=== PATIENT | female | born 1935 | race Caucasian/White ===

== ENCOUNTER → 2020-05-21 | Outpatient (CLI) | payer MEDICARE, OTHER ==
[~2020-05-21] MED LIST: NORMAL SALINE IV ONE; SINCALIDE IV ONE
--- NOTE | 2020-05-21 12:11 | RAD ---
HEPATOBILIARY SCAN WITH EJECTION FRACTION History: Reason: RUQ PAIN / Spl. Instructions: / History: Procedure: Serial static images are obtained of the liver and biliary system in the frontal projection following IV administration of 5.5 mCi of Technetium 99m Choletec. After filling of the gallbladder, 1.6 mcg of sincalide were infused over 30 minutes and dynamic imaging continued over this period. The gallbladder ejection fraction was calculated. Findings: There is prompt hepatic clearance of tracer from the blood pool. There is homogeneous distribution throughout the liver. There is normal filling of the gallbladder and normal emptying into the biliary system and small bowel. The gallbladder ejection fraction measures 95% (normal gallbladder EF is 35% or greater). IMPRESSION: 1. The cystic duct and common bile duct are patent. Negative for acute cholecystitis. 2. The gallbladder ejection fraction is normal. Electronically signed by: Tyson Zapata MD (05/21/2020 12:08 PM) [id number]
== END | disposition home or self-care (01) ==
LOC: NM 08:46
PROVIDERS: ATTEND Family Medicine
DX: R10.11 Right upper quadrant pain (principal)
CPT/HCPCS: 78227; A9537; J2805

== ENCOUNTER → 2020-10-28 | Outpatient (CLI) | payer MEDICARE, OTHER ==
--- NOTE | 2020-10-28 10:47 | RAD ---
EXAM: Lumbar spine, 5 views. HISTORY: Pain. COMPARISON: None. FINDINGS: 5 views of the lumbar spine are obtained. There is minimal lumbar dextrocurvature. There is grade 1 anterolisthesis of L3 on L4, measuring 2 mm. There is grade one anterolisthesis of L4 on L5, measuring 4 mm. There is grade 1 anterolisthesis of L5 on S1, measuring 4 mm. There is facet arthrop athy at the lower lumbar levels. IMPRESSION: 1. Mild grade 1 anterolisthesis and facet arthropathy at the mid and lower lumbar levels. 2. No acute osseous finding. Electronically signed by: Nu Wasserman MD (10/28/2020 10:44 AM) [id number]
== END ==
LOC: DXRAD 09:56
PROVIDERS: ATTEND Family Medicine
DX: M47.816 Spondylosis without myelopathy or radiculopathy, lumbar region (principal)
CPT/HCPCS: 72110

== ENCOUNTER 2021-01-31 15:13 | Emergency (ER) | payer MEDICARE, OTHER ==
[~2021-01-31] VITALS: Ht 154.9 cm; Wt 80.7 kg
--- NOTE | 2021-01-31 15:20 | PHYS DOC ---
Past History Past Medical History: Diabetes, Hypertension Adult General HPI HPI Patient is a 85-year-old female who presents via POV for "slurred speech". Last known well was 0030 hours today, 13 hours prior to arrival. Patient lives at home with son whom is primary brass chaser. Son apparently reported that patient had been having slurred speech and difficulty forming words and at times expressing herself with words. Patient's daughter was finally notified of this this afternoon and after hearing about these findings, brought patient in for evaluation. On arrival, patient denies any slurred speech but does admit difficulty at times forming words and expressing herself with words, such as falls which is new. Nothing known makes better or worse. She denies being in any pain, no fever or recent illness, no trauma, no medication changes, chest pain, shortness of breath, vision changes, syncope or lightheadedness, abdominal pain, UTI-like symptoms, lower extremity swelling, motor or sensory function or recent changes or obvious neurologic deficits. She has history of hypertension and diabetes, takes a baby aspirin and high intensity statin daily, no prior history of cardiovascular disease or CVA. Daughter who is at bedside with patient does admit she has had prior hospitalizations for hypertensive urgency /emergency in the past, none of which have been in the past 6 months Review of Systems Review of Systems Fourteen body systems of review of systems have been reviewed. See HPI for pertinent positives and negative responses, other ashley all other systems are negative, non-pertinent or non-contributory Allergies Allergies Allergies Coded Allergies Type Severity Reaction Last Updated Verified No Known Drug Allergies 05/21/20 No Physical Exam Physical Exam General: Appears well, non toxic, and comfortable Skin: Warm, dry. Normal for ethnicity. HEENT: Atraumatic. PERRLA. Moist mucous membranes. Neck: Trachea midline. Normal ROM. Respiratory: Normal WOB. CTAB w/o w/r/r. No tachypnea. Cardiovascular: Regular rate and rhythm. Normal peripheral perfusion. No edema. Abdomen: Soft. Non tender. No distension. Back: Normal ROM. Musculoskeletal: No swelling or deformity. Neuro: Alert and oriented x 4. MAEE. GCS 15. Normal FNF. Negative pronator drift. Normal heel to logan. Normal Monico. CN II-XII intact. Normal sensation. 4/5 right lower extremity muscle strength otherwise motor function intact. Normal speech. Psych: Normal affect and mood. Current Patient Data Vital Signs Vital Signs Date Time Temp Pulse Resp B/P (MAP) Pulse Ox O2 Delivery O2 Flow Rate FiO2 01/31/21 15:20 99.0 78 20 150/108 (122) 96 Room Air Vital Signs Date Time Temp Pulse Resp B/P (MAP) Pulse Ox O2 Delivery O2 Flow Rate FiO2 01/31/21 15:20 99.0 78 20 150/108 (122) 96 Room Air Lab Results Laboratory Tests Test 01/31/21 15:25 01/31/21 15:58 White Blood Count 6.6 x10^3/uL Red Blood Count 4.62 x10^6/uL Hemoglobin 13.8 g/dL Hematocrit 42.2 % Mean Corpuscular Volume 91 fL Mean Corpuscular Hemoglobin 30 pg Mean Corpuscular Hemoglobin Concent 33 g/dL Red Cell Distribution Width 13.5 % Platelet Count 228 x10^3/uL Neutrophils (%) (Auto) 52 % Lymphocytes (%) (Auto) 38 % Monocytes (%) (Auto) 7 % Eosinophils (%) (Auto) 2 % Basophils (%) (Auto) 1 % Neutrophils # (Auto) 3.4 x10^3uL Lymphocytes # (Auto) 2.5 x10^3/uL Monocytes # (Auto) 0.5 x10^3/uL Eosinophils # (Auto) 0.1 x10^3/uL Basophils # (Auto) 0.0 x10^3/uL Prothrombin Time 10.4 SEC Prothromb Time International Ratio 1.0 Activated Partial Thromboplast Time 30 SEC Sodium Level 141 mmol/L Potassium Level 3.9 mmol/L Chloride Level 105 mmol/L Carbon Dioxide Level 29 mmol/L Anion Gap 7 Blood Urea Nitrogen 20 mg/dL Creatinine 1.1 mg/dL Estimated GFR (Cockcroft-Gault) 47.2 BUN/Creatinine Ratio 18 Glucose Level 115 mg/dL Calcium Level 10.0 mg/dL Total Bilirubin 0.5 mg/dL Aspartate Amino Transf (AST/SGOT) 21 U/L Alanine Aminotransferase (ALT/SGPT) 40 U/L Alkaline Phosphatase 50 U/L Troponin I Quantitative < 0.017 ng/mL Total Protein 7.8 g/dL Albumin 3.9 g/dL Albumin/Globulin Ratio 1.0 Urine Collection Type Unknown Urine Color Yellow Urine Clarity Clear Urine pH 6.5 Urine Specific [place] 1.020 Urine Protein Neg Urine Glucose (UA) Neg mg/dL Urine Ketones (Stick) Neg mg/dL Urine Blood Neg Urine Nitrite Neg Urine Bilirubin Neg Urine Urobilinogen Dipstick 1.0 mg/dL Urine Leukocyte Esterase Trace Urine RBC Rare /HPF Urine WBC 1-4 /HPF Urine Squamous Epithelial Cells Many /LPF Urine Bacteria 0 /HPF EKG EKG EKG ordered and interpreted by myself 1521 hrs. by myself as sinus rhythm at 77 bpm, unremarkable intervals, no axis deviation, no acute ischemic findings, no STEMI Radiology/Procedures Radiology/Procedures CT STROKE HEAD W/O History: Reason: slurred speech, dysarthria / Spl. Instructions: / History: Comparison: February 18, 2016 Technique: Noncontrast CT imaging was performed of the head. Exposure: One or more of the following individualized dose reduction techniques were utilized for this examination: 1. Automated exposure control 2. Adjustment of the mA and/or kV according to patient size 3. Use of iterative reconstruction technique. Findings: Acute left thalamic hemorrhage measures 1.3 x 0.9 cm. Mild adjacent mass effect. No hydrocephalus. Mild brain parenchymal volume loss. Mild foci of decreased attenuation within the hemispheric white matter, most often due to chronic microvascular ischemia. Imaged orbits are unremarkable. Imaged paranasal sinuses and mastoid air cells are clear. No acute calvarial fracture. Impression: 1. Acute left thalamic hemorrhage. FOR INTERNAL CODING PURPOSES Critical result: Findings discussed with Dr. Nieves at 01/31/2021 3:45 PM. RESULT CODE: (C) Electronically signed by: Deonte Hines DO (01/31/2021 3:51 PM) [id number] DICTATED AND SIGNED BY: DEONTE HINES DO DATE: 01/31/21 1543 CC: SADIA REESE MD; INA NIEVES DO ~MTH0 0 Heart Score C/O Chest Pain: No HEART Score for Chest Pain: HEART Score for Chest Pain Response (Comments) Value History Slighlty/Non-Suspicious 0 ECG Normal 0 Age > 65 2 Risk Factors >3 Risk Factors or Hx CAD 2 Troponin < Normal Limit 0 Total 4 Risk Factors: Risk Factors: DM, Current or recent (<one month) smoker, HTN, HLP, family history of CAD, obesity. Risk Scores: Risk Factors: DM, Current or recent (<one month) smoker, HTN, HLP, family history of CAD, obesity. Course & Med Decision Making Course & Med Decision Making Hemodynamically stable. HPI concerning for strokelike symptoms, physical exam grossly unremarkable with NIH stroke scale of 1 and apparent apraxia Code stroke called, patient had NIH stroke scale performed while in route to CT head. Blood was drawn. [id number] glucose and EKG were unremarkable CT head findings concerning for hemorrhagic stroke in left thalamus, there is no obvious midline shift or other concerning findings. Nonetheless, given findings, neurosurgery service at [facility] was contacted and case discussed. They agreed for need of transfer and hospital admission. No emergent/urgent indication for surgical intervention but there is indication for admission for continued supportive care, blood pressure monitoring, neuro evaluation etc. I contacted hospitalist at [facility] and they were amenable for transfer and admission under their care. I updated patient and daughter on proposed plan of care that included hospital transfer, they were amenable to plan of care as stated. CODE STATUS discussion occurred with the daughter and patient, patient is full CODE STATUS at this time. All questions and concerns addressed prior to ER transport to [facility] Critical Care Time This patient required critical care. Due to the fact that the patient required a significant amount of one on one physician - patient contact time, ordering and review of studies, arranging urgent treatment with development of a management plan, evaluation of patients response to treatment with frequent reassessments, and discussions with other providers this patient required 45 minutes of critical care time. Critical care time was indicated due to the inherent instability and/or potential for instability in this patient. The critical care time that is allocated to this patient is above and beyond any time spent on any other billable procedures performed on this patient. Dragon Disclaimer Dragon Disclaimer This electronic medical record was generated, in whole or in part, using a voice recognition dictation system. 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
--- NOTE | 2021-01-31 15:29 | EKG ---
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
--- NOTE | 2021-01-31 15:53 | RAD ---
CT STROKE HEAD W/O History: Reason: slurred speech, dysarthria / Spl. Instructions: / History: Comparison: February 18, 2016 Technique: Noncontrast CT imaging was performed of the head. Exposure: One or more of the following individualized dose reduction techniques were utilized for thi s examination: 1. Automated exposure control 2. Adjustment of the mA and/or kV according to patient size 3. Use of iterative reconstruction technique. Findings: Acute left thalamic hemorrhage measures 1.3 x 0.9 cm. Mild adjacent mass effect. No hydrocephalus. Mild brain parenchymal volume loss. Mild foci of decreased attenuation within the h emispheric white matter, most often due to chronic microvascular ischemia. Imaged orbits are unremarkable. Imaged paranasal sinuses and mastoid air cells are clear. No acute ca lvarial fracture. Impression: 1. Acute left thalamic hemorrhage. FOR INTERNAL CODING PURPOSES Critical result: Findings discussed with Dr. Meyer at 01/31/2021 3:45 PM. RESULT CODE: (C) Electronically signed by: Deonte Hines DO (01/31/2021 3:51 PM) [id number]
[2021-01-31 15:54] LABS: BASO % 1 % (0-3); EOS # 0.1 x10^3/uL (0.0-0.7); EOS % 2 % (0-3); HEMATOCRIT 42.2 % (36.0-47.0); HEMOGLOBIN 13.8 g/dL (12.0-15.5); LYMPH # 2.5 x10^3/uL (1.0-4.8); LYMPH % 38 % (24-48); MEAN CORPUSCULAR HEMOGLOBIN 30 pg (25-35); MEAN CORPUSCULAR HGB CONC 33 g/dL (31-37); MEAN CORPUSCULAR VOLUME 91 fL (79-100); MONO # 0.5 x10^3/uL (0.0-1.1); MONO % 7 % (0-9); NEUT # 3.4 x10^3uL (1.8-7.7); NEUT % 52 % (31-73); PLATELET COUNT 228 x10^3/uL (140-400); RED BLOOD COUNT 4.62 x10^6/uL (3.50-5.40); RED CELL DISTRIBUTION WIDTH 13.5 % (11.5-14.5); WHITE BLOOD COUNT 6.6 x10^3/uL (4.0-11.0)
[2021-01-31 16:15] LABS: CREATININE 1.1 mg/dL (0.6-1.0); GFR 47.2; POTASSIUM 3.9 mmol/L (3.5-5.1)
[2021-01-31 16:23] LABS: ALBUMIN 3.9 g/dL (3.4-5.0); TOTAL BILIRUBIN 0.5 mg/dL (0.2-1.0); TOTAL PROTEIN 7.8 g/dL (6.4-8.2)
[2021-01-31 16:57] LABS: BACTERIA,URINE 0 /HPF (0-FEW); BILIRUBIN,URINE NEG (NEG); CLARITY,URINE CLEAR; COLOR,URINE YELLOW; GLUCOSE,URINE NEG (NEG); NITRITE,URINE NEG (NEG); RBC,URINE RARE /HPF (0-2); SQUAMOUS EPITHELIAL CELL,UR MANY /LPF
[2021-01-31 17:03] VITALS: BP 142/77
== END 2021-01-31 17:30 | disposition short-term general hospital (02) ==
LOC: ER 15:13
DX: I62.9 Nontraumatic intracranial hemorrhage, unspecified (principal); R48.2 Apraxia; I10 Essential (primary) hypertension; I63.9 Cerebral infarction, unspecified; E11.9 Type 2 diabetes mellitus without complications
CPT/HCPCS: 36415; 70450; 80053; 81001; 84484; 85025; 85610; 85730; 93005; 99285-25; 99291-25

== ENCOUNTER → 2021-02-14 | Outpatient (CLI) | payer MEDICARE, OTHER ==
[2021-01-31 17:03] VITALS: BP 142/77
--- NOTE | 2021-02-14 11:17 | RAD ---
EXAM: Head CT without contrast. HISTORY: Thalamic hemorrhage follow-up. TECHNIQUE: Computed tomographic images of the head were obtained without contrast. *One or more of the following individualized dose reduction techniques were utilized for this examina tion: 1. Automated exposure control. 2. Adjustment of the mA and/or kV according to patient size. 3. Use of iterative reconstruction technique. COMPARISON: 01/31/2021. FINDINGS: There has been interval decrease in the size and attenuation attenuation of a recently demo nstrated acute hemorrhage left thalamic and parenchymal hemorrhage. There is minimal residual hyperde nsity in this location and slight surrounding edema. No new hemorrhage is seen. There is no mass effe ct or midline shift. There is no hydrocephalus. There is decreased attenuation within the cerebral wh ite matter, likely due to chronic small vessel disease. There is age-appropriate cerebral volume loss . There is evidence of lens surgery. The paranasal sinuses mastoid air cells are clear. There is no c alvarial lesion. IMPRESSION: 1. Decrease in the size and attenuation of a previously demonstrates left thalamic hematoma and surro unding edema. 2. Bilateral cerebral white matter changes, likely due to chronic small vessel disease. Electronically signed by: Nu Wasserman MD (02/14/2021 11:15 AM) [id number]
== END ==
LOC: CT 10:10
PROVIDERS: ATTEND Neurological Surgery
DX: I61.0 Nontraumatic intracerebral hemorrhage in hemisphere, subcortical (principal)
CPT/HCPCS: 70450

== ENCOUNTER → 2021-02-28 | Outpatient (CLI) | payer MEDICARE, OTHER ==
[2021-01-31 17:03] VITALS: BP 142/77
--- NOTE | 2021-02-28 12:30 | RAD ---
INDICATION: Reason: follow up bleed / Spl. Instructions: / History: . COMPARISON: February 14, 2021 TECHNIQUE: Axial CT images obtained through the head. One or more of the following individualized dose reduction techniques were utilized for this examinat ion: 1. Automated exposure control; 2. Adjustment of the mA and/or kV according to patient size; 3 . Use of iterative reconstruction technique. FINDINGS: Punctate focus of high density in the left thalamus measuring up to 4 mm which could be from the kayleigh ent's previously identified hemorrhage which is similar to most recent prior. There is some surroundi ng low density which could be from a small amount of associated edema. No new region of hemorrhage. No hydrocephalus. Multifocal regions of low density within the white matter. Calcific atherosclerosis. IMPRESSION: * Similar appearance compared to prior with a small focus of high density in the left thalamus from the patient's previously identified hemorrhage with small amount of surrounding edema again seen. No new hemorrhage Electronically signed by: Octavio De Santiago MD (02/28/2021 12:27 PM) [id number]
== END ==
LOC: CT 11:29
PROVIDERS: ATTEND Neurological Surgery
DX: I61.9 Nontraumatic intracerebral hemorrhage, unspecified (principal)
CPT/HCPCS: 70450

== ENCOUNTER → 2021-06-14 | Outpatient (CLI) | payer MEDICARE, OTHER ==
--- NOTE | 2021-06-14 12:46 | RAD ---
EXAM: DUAL ENERGY X-RAY ABSORPTIOMETRY (DEXA). HISTORY: Postmenopausal screening. FINDINGS: The lowest measured T-score is -1.6 in the lumbar spine, based on a bone mineral density of 0.987 g/cm^2. Refer to the worksheets for full detail. No comparison examinations are available. IMPRESSION: 1. Low bone mass. Bone mineral density yields a T-score between -1.0 and -2.5. Fracture risk is incre ased. 2. FRAX report: Not calculated. METHODOLOGY: Dual energy x-ray absorptiometry was performed to measure bone mineral density. The foll owing analysis is based on the 2019 Official Positions of the International Society for Clinical Dens itometry: Measurements of the hips and the average of L1-L4 are preferred. When the spine and/or hip cannot be feasibly measured or interpreted, or in the setting of hyperparathyroidism, distal radial bone minera l density may be measured. The lumbar spine T-score is based on the average bone mineral density of L1-L4. In the setting of art ifact or anatomic abnormality, some lumbar levels may be excluded, and the remaining levels used for calculation. A single lumbar level is not used for diagnosis, and if only a single level is available for assessment, another anatomic site will be used to assign a diagnosis. The hip T-score is based on the bone mineral density measurement of the femoral neck or total proxima l femur of either side, whichever is lowest. Bilateral mean values are not used for diagnosis. The forearm T-score is derived from 33% of the distal radius of the nondominant forearm. Electronically signed by: Nu Wasserman MD (06/14/2021 12:44 PM) [id number]
== END ==
LOC: DXRAD 11:06
PROVIDERS: ATTEND Family Medicine
DX: M85.89 Other specified disorders of bone density and structure, multiple sites (principal)
CPT/HCPCS: 77080

== ENCOUNTER 2021-06-27 10:39 | Emergency (ER) | payer MEDICARE, OTHER ==
[~2021-06-27] VITALS: Ht 154.9 cm; Wt 78.0 kg
--- NOTE | 2021-06-27 11:03 | EKG ---
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
[2021-06-27 11:07] LABS: BASO % 1 % (0-3); EOS # 0.1 x10^3/uL (0.0-0.7); EOS % 2 % (0-3); HEMATOCRIT 40.8 % (36.0-47.0); HEMOGLOBIN 13.5 g/dL (12.0-15.5); LYMPH # 2.1 x10^3/uL (1.0-4.8); LYMPH % 39 % (24-48); MEAN CORPUSCULAR HEMOGLOBIN 30 pg (25-35); MEAN CORPUSCULAR HGB CONC 33 g/dL (31-37); MEAN CORPUSCULAR VOLUME 91 fL (79-100); MONO # 0.4 x10^3/uL (0.0-1.1); MONO % 7 % (0-9); NEUT # 2.8 x10^3uL (1.8-7.7); NEUT % 51 % (31-73); PLATELET COUNT 215 x10^3/uL (140-400); RED BLOOD COUNT 4.51 x10^6/uL (3.50-5.40); RED CELL DISTRIBUTION WIDTH 13.6 % (11.5-14.5); WHITE BLOOD COUNT 5.5 x10^3/uL (4.0-11.0)
[2021-06-27] MEDS ORDERED: CONTRAST GIVEN. MC PRN (11:15)
[2021-06-27] MEDS ORDERED: IOHEXOL 350 MG/ML 100 ML VIAL. IV ONE (11:15)
[2021-06-27 11:16] LABS: CALCIUM 9.6 mg/dL (8.5-10.1); CREATININE 1.1 mg/dL (0.6-1.0); GFR 47.1; POTASSIUM 4.1 mmol/L (3.5-5.1)
--- NOTE | 2021-06-27 11:18 | RAD ---
CT STROKE HEAD W/O Date: 06/27/2021 11:03 AM Clinical Indication: dizzy Comparison: 02/28/2021. Technique: 5 mm axial tomographic images were obtained of the head without contrast. These were view ed on brain and bone windows. One or more of the following dose reduction techniques were utilized: A utomated exposure control (AEC), Adjustment of mA and/or kV according to patient size, Use of iterati ve reconstruction technique such as ASiR, CT scan done according to ALARA and image gently/image ashley ly Findings: Mild generalized cerebral and cerebellar volume loss. Mild nonspecific periventricular hypoattenuatio n, most commonly seen with chronic small vessel ischemic disease. Calcified atherosclerosis of the bi lateral cavernous and paraclinoid internal carotid arteries and intracranial vertebral arteries. No intra- or extra-axial mass or fluid collection. No acute hemorrhage. The ventricles are normal in size, shape, and morphology. The mera-white matter junction is normal. The subarachnoid cisterns are patent. The visualized paranasal sinuses are normal. The visualized portions of the orbits and globes are no rmal. The mastoid air cells are clear. The cytotechnologist/histotechnologist topogram shows no lytic lesion or fracture. Impression: No acute hemorrhage or large territory mera-white loss. FOR INTERNAL CODING PURPOSES Critical result: Findings discussed with Dr. Rivero at 06/27/2021 11:14 AM. RESULT CODE: (C) Electronically signed by: Ray Aaron MD (06/27/2021 11:15 AM) [id number]
[2021-06-27 11:22] LABS: ALBUMIN 3.8 g/dL (3.4-5.0); ALBUMIN/GLOBULIN RATIO 1.1 (1.0-1.7); MAGNESIUM 1.6 mg/dL (1.8-2.4); PHOSPHORUS 3.1 mg/dL (2.6-4.7); TOTAL BILIRUBIN 0.7 mg/dL (0.2-1.0); TOTAL PROTEIN 7.4 g/dL (6.4-8.2)
--- NOTE | 2021-06-27 11:22 | PHYS DOC ---
Past History Past Medical History: Diabetes, Hypertension Past Surgical History: Hysterectomy, Knee Replacement, Other Additional Past Surgical Histo: L THUMB, CATARACT SURGERY Alcohol Use: None General Adult EDM: Chief Complaint: DIZZY/LIGHT HEADED HPI: HPI: Patient is a 86-year-old female coming in for feeling off balance, states like her equilibrium is off. Patient denies any spinning sensation or vertigo. Denies any lightheadedness. Patient states she first noticed the symptoms when she got up this morning, felt normal when she went to bed last night. Patient states that the sensation makes her feel like she is drifting off to her left. Denies any headaches, blurred vision, diplopia but states she has a pressure sensation on bilateral temples that is not painful. Patient has a history significant for a hemorrhagic left thalamic stroke 5 months ago, has been following with her neurosurgeon and having monthly CT scans. Patient restarted her aspirin and fish oil about 3 weeks ago. Denies any other blood thinners. Denies any trauma. States she does not have any difficulty walking on her own at baseline. Review of Systems: Review of Systems: All other systems within normal limits except for as noted in the HPI Current Medications: Current Meds: Current Medications Medications (Trade) Dose Ordered Sig/Katie Start Time Stop Time Status Last Admin Dose Admin Info (Do NOT chart on this entry -- for MONITORING) 1 each PRN DAILY PRN 06/27/21 11:15 06/29/21 11:14 Iohexol (Omnipaque 350 Mg/ml) 100 ml 1X ONCE 06/27/21 11:15 06/27/21 11:16 DC Allergies: Allergies: Allergies Coded Allergies Type Severity Reaction Last Updated Verified No Known Drug Allergies 06/27/21 No Physical Exam: PE: Constitutional: Well developed, well nourished, no acute distress, non-toxic appearance. [] HENT: Normocephalic, atraumatic, bilateral external ears normal, nose normal. [] Eyes: PERRLA, conjunctiva normal, no discharge. Extraocular is intact, nystagmus in left and right lateral gaze [] Neck: No rigidity, supple, no stridor. [] Cardiovascular: Regular rate and rhythm, brisk cap refill [] Lungs & Thorax: Non labored symmetric respirations, no tachypnea or respiratory distress [] Abdomen: Soft, nondistended. Skin: Warm, dry, no erythema, no rash. [] Back: Unremarkable Extremities: No deformities, range of motion grossly intact, no lower extremity edema [] Neurologic: Alert and oriented X 3, no focal deficits noted. NIH 0, unable to assess gait because patient not tolerating exam [] Psychologic: Affect normal, judgement normal, mood normal. [] Current Patient Data: Labs: Laboratory Tests Test 06/27/21 10:50 06/27/21 10:51 White Blood Count 5.5 x10^3/uL (4.0-11.0) Red Blood Count 4.51 x10^6/uL (3.50-5.40) Hemoglobin 13.5 g/dL (12.0-15.5) Hematocrit 40.8 % (36.0-47.0) Mean Corpuscular Volume 91 fL (79-100) Mean Corpuscular Hemoglobin 30 pg (25-35) Mean Corpuscular Hemoglobin Concent 33 g/dL (31-37) Red Cell Distribution Width 13.6 % (11.5-14.5) Platelet Count 215 x10^3/uL (140-400) Neutrophils (%) (Auto) 51 % (31-73) Lymphocytes (%) (Auto) 39 % (24-48) Monocytes (%) (Auto) 7 % (0-9) Eosinophils (%) (Auto) 2 % (0-3) Basophils (%) (Auto) 1 % (0-3) Neutrophils # (Auto) 2.8 x10^3uL (1.8-7.7) Lymphocytes # (Auto) 2.1 x10^3/uL (1.0-4.8) Monocytes # (Auto) 0.4 x10^3/uL (0.0-1.1) Eosinophils # (Auto) 0.1 x10^3/uL (0.0-0.7) Basophils # (Auto) 0.0 x10^3/uL (0.0-0.2) Glucose (Fingerstick) 147 mg/dL (70-99) H Vital Signs: Vital Signs Date Time Temp Pulse Resp B/P (MAP) Pulse Ox O2 Delivery O2 Flow Rate FiO2 06/27/21 10:53 98.3 70 18 164/70 95 Room Air EKG: EKG: Sinus rhythm, heart rate 60 bpm, normal axis, no ST elevation or depression, no ectopy. [] Radiology/Procedures: Radiology/Procedures: [address] [address] IMAGING REPORT Signed PATIENT: CARLOS FIGUEROAOUNT: [id number] : 1935 LOCATION: ER AGE: 86 SEX: F EXAM STATUS: PRE ER ORD. PHYSICIAN: ZINA LONGORIA MD REASON: dizzy PROCEDURE: CT CODE STROKE HEAD WO CT STROKE HEAD W/O Date: 06/27/2021 11:03 AM Clinical Indication: dizzy Comparison: 02/28/2021. Technique: 5 mm axial tomographic images were obtained of the head without contrast. These were viewed on brain and bone windows. One or more of the following dose reduction techniques were utilized: Automated exposure control (AEC), Adjustment of mA and/or kV according to patient size, Use of iterative reconstruction technique such as ASiR, CT scan done according to ALARA and image gently/image wisely Findings: Mild generalized cerebral and cerebellar volume loss. Mild nonspecific periventricular hypoattenuation, most commonly seen with chronic small vessel ischemic disease. Calcified atherosclerosis of the bilateral cavernous and p araclinoid internal carotid arteries and intracranial vertebral arteries. No intra- or extra-axial mass or fluid collection. No acute hemorrhage. The ventricles are normal in size, shape, and morphology. The mera-white matter junction is normal. The subarachnoid cisterns are patent. The visualized paranasal sinuses are normal. The visualized portions of the orbits and globes are normal. The mastoid air cells are clear. The electric detector operator topogram shows no lytic lesion or fracture. Impression: No acute hemorrhage or large territory mera-white loss. FOR INTERNAL CODING PURPOSES Critical result: Findings discussed with Dr. Longoria at 06/27/2021 11:14 AM. RESULT CODE: (C) Electronically signed by: Ced Aaron MD (06/27/2021 11:15 AM) [id number] DICTATED AND SIGNED BY: CED AARON MD DATE: 06/27/21 1114 CC: SADIA REESE MD; ZINA LONGORIA MD ~MTH0 0 [] Heart Score: C/O Chest Pain: No HEART Score for Chest Pain: HEART Score for Chest Pain Response (Comments) Value History Slighlty/Non-Suspicious 0 ECG Nonspecific Repolarizatio 1 Age > 65 2 Risk Factors 1 or 2 Risk Factors 1 Troponin < Normal Limit 0 Total 4 Risk Factors: Risk Factors: DM, Current or recent (<one month) smoker, HTN, HLP, family history of CAD, obesity. Risk Scores: Score 0 - 3: 2.5% MACE over next 6 weeks - Discharge Home Score 4 - 6: 20.3% MACE over next 6 weeks - Admit for Clinical Observation Score 7 - 10: 72.7% MACE over next 6 weeks - Early Invasive Strategies Course & Med Decision Making: Course & Med Decision Making Pertinent Labs and Imaging studies reviewed. (See chart for details) Patient unable to tolerate walking, as she is very ataxic. Diagnosis of vertigo possible but patient insists that she has had vertigo before and this is different. Concerns for posterior ischemia patient patient was sitting recent hemorrhagic stroke. Discussed with [facility] hospitalist and neurologist, will accept patient for transfer. [] Dragon Disclaimer: Dragon Disclaimer: This electronic medical record was generated, in whole or in part, using a voice recognition dictation system. Departure Departure: Impression: Primary Impression: Ataxia Disposition: 02 SHORT TERM HOSPITAL Condition: STABLE Referrals: SADIA REESE MD (PCP) ZINA LONGORIA MD Jun 27, 2021 11:22
[2021-06-27] MEDS ORDERED: MECLIZINE 12.5 MG TABLET. PO ONE (12:15)
--- NOTE | 2021-06-27 12:16 | RAD ---
EXAM: CTA HEAD AND NECK W/WO CONTRAST DATE: 06/27/2021 11:40 AM INDICATION: dizzy TECHNIQUE: CTA angiogram of the head and neck was obtained after IV bolus administration of 80 cc of Omnipaque 350. The images were sent to workstation and multiplanar reconstructions were obtained. Mu ltiplanar reconstruction images to include MIP and 3-D reconstruction images are submitted. One or more of the following dose reduction techniques were utilized: Automated exposure control (AEC ), Adjustment of mA and/or kV according to patient size, Use of iterative reconstruction technique matos ch as ASiR, CT scan done according to ALARA and image gently/image wisely COMPARISON: Noncontrast CT head done earlier the same. FINDINGS: CTA Head: Aplastic/markedly hypoplastic left A1 segment. The visualized distal internal carotid arteries, anter ior and middle cerebral arteries are patent and normal caliber. The distal vertebral arteries, basila r artery, and posterior cerebral arteries are patent and normal caliber. No aneurysm or arteriovenous malformation is seen. CTA Neck: Right carotid: The right common carotid artery is patent and normal caliber. Atherosclerosis of the c arotid bifurcation. No stenosis of the right internal carotid artery per NASCET criteria. The right e xternal carotid artery is patent. Left carotid: The left common carotid artery is patent and normal caliber. Atherosclerosis of the car otid bifurcation. 50 percent stenosis of the left internal carotid artery per NASCET criteria. The le ft external carotid artery is patent. Right vertebral: The right vertebral artery is patent and normal caliber. Left vertebral: The left vertebral artery is patent and normal caliber. The visualized portions of the aortic arch are normal. The origins of the brachiocephalic and subclav raphael arteries are normal. No cervical lymphadenopathy. The thyroid gland is normal. The parotid and submandibular glands are no rmal. The visualized aerodigestive tract is unremarkable. Moderate multilevel degenerative disc height loss. Multilevel disc protrusions and marginal osteophyt es results in multilevel spinal canal stenosis. Multilevel uncovertebral and facet arthrosis with mul tilevel neural foraminal narrowing. The visualized portions of the lungs are clear. IMPRESSION: 1. No aneurysm. No intracranial stenosis or occlusion. 2. Atherosclerosis of the cervical carotid arteries with no stenosis on the right and 50 percent sten osis on the left. 3. Patent vertebral arteries. PQRS Compliance Statement - Stenosis calculations for CT, MR and conventional angiography are based u kory measurement of the distal ICA diameter in accordance with the NASCET methodology. Electronically signed by: Ray Aaron MD (06/27/2021 12:13 PM) [facility]
[2021-06-27 12:38] LABS: BACTERIA,URINE FEW /HPF (0-FEW); BILIRUBIN,URINE NEG (NEG); CLARITY,URINE CLEAR; COLOR,URINE YELLOW; GLUCOSE,URINE NEG (NEG); NITRITE,URINE NEG (NEG); SQUAMOUS EPITHELIAL CELL,UR MOD /LPF; UROBILINOGEN,URINE 0.2 mg/dL (0.2 mg/dL)
[2021-06-27 15:55] VITALS: BP 141/68
== END 2021-06-27 16:05 | disposition short-term general hospital (02) ==
LOC: ER 10:39
DX: U07.1 COVID-19 (principal); R27.0 Ataxia, unspecified; E11.9 Type 2 diabetes mellitus without complications; I10 Essential (primary) hypertension; Z90.710 Acquired absence of both cervix and uterus
CPT/HCPCS: 36415; 70450; 70496; 70498; 80053; 81001; 82947; 83735; 84100; 84484; 85025; 85610; 85730; 87426; 93005; 99285; C9803; Q9967; U0003

== ENCOUNTER → 2021-09-08 | Outpatient (CLI) | payer MEDICARE, OTHER ==
--- NOTE | 2021-09-08 12:54 | RAD ---
EXAM: Chest and right ribs, 4 views. HISTORY: Chest and rib pain. COMPARISON: None. FINDINGS: A frontal view of the chest and 3 views of the right ribs are obtained. There is no infiltr ate, pleural effusion or pneumothorax. The heart is normal in size. No rib fracture is seen. There ar e incidental surgical clips within the right neck. IMPRESSION: No acute pulmonary or osseous finding. Electronically signed by: Nu Wasserman MD (09/08/2021 12:51 PM) [id number]
== END ==
LOC: RAD 12:01
PROVIDERS: ATTEND Family Medicine
DX: R07.89 Other chest pain (principal); R07.81 Pleurodynia
CPT/HCPCS: 71101